=== PATIENT | female | born 1985 | race Caucasian/White ===

== ENCOUNTER 2021-01-28 20:08 | Emergency (ER) | payer BC | END 2021-01-28 21:00 | disposition home or self-care (01) | LOC: CSHERS 20:08 | DX: L03.113 Cellulitis of right upper limb (principal); F17.210 Nicotine dependence, cigarettes, uncomplicated | CPT/HCPCS: 99283 ==

== ENCOUNTER 2023-05-07 09:14 | Emergency (ER) | payer BC | END 2023-05-07 11:07 | disposition home or self-care (01) | LOC: CSHERS 09:14 | DX: G51.0 Bell's palsy (principal); F17.210 Nicotine dependence, cigarettes, uncomplicated | CPT/HCPCS: 99284 ==